=== PATIENT | male | born 1990 ===

== ENCOUNTER 2024-08-11 12:09 | Emergency (ER) | payer OTHER, SELFPAY ==
--- NOTE | ~2024-08-11 | XR_ITS ---
EXAMINATION: 1. Pelvis. 2. Sacrum. CLINICAL INFORMATION: Trauma. COMPARISON: None. TECHNIQUE: 1. Pelvis. Single view 2. Sacrum. AP lateral. FINDINGS: 1. Pelvis. No fracture of the pelvis. Hip joints and sacroiliac joints are normal. 2. Sacrum. No fracture sacrum or coccyx. XR/XR sacrum coccyx min 2V IMPRESSION: 1. Pelvis. No acute abnormality. 2. Sacrum. No acute abnormality. Electronically signed by: Cl Hernandez MD 08/11/2024 03:02 PM EDT
--- NOTE | ~2024-08-11 | XR_ITS ---
EXAMINATION: 1. Pelvis. 2. Sacrum. CLINICAL INFORMATION: Trauma. COMPARISON: None. TECHNIQUE: 1. Pelvis. Single view 2. Sacrum. AP lateral. FINDINGS: 1. Pelvis. No fracture of the pelvis. Hip joints and sacroiliac joints are normal. 2. Sacrum. No fracture sacrum or coccyx. XR/XR pelvis 1-2V IMPRESSION: 1. Pelvis. No acute abnormality. 2. Sacrum. No acute abnormality. Electronically signed by: Cl Hernandez MD 08/11/2024 03:02 PM EDT
[2024-08-11 12:49] VITALS: BP 115/64; PULSE 62; RESP 18; TEMP 36.6; O2SAT 99; BMI 28.0
--- NOTE | 2024-08-11 12:54 | ED_ITS ---
HPI - Fall General Chief Complaint: Fall Stated Complaint: Tailbone injury Time Seen by Provider: 08/11/24 13:18 Source: patient Limitations: no limitations History of Present Illness ED Provider: Jody Funes PA-C HPI Narrative: 34-year-old male presents with tailbone pain x2 days. Patient states he was playing basketball, he jumped up for the ball, he fell backwards landing on his bottom. Patient now having pain over the tailbone. Patient states it has been very painful to have a bowel movement, he is now constipated as he has been avoiding pushing to have a bowel movement. Denies abdominal pain, vomiting, inability to pass flatus. Denies weakness of lower extremities, paresthesia, urinary retention. Related Data Allergies Allergy/AdvReac Type Severity Reaction Status Date / Time No Known Allergies Allergy Verified 08/11/24 12:51 [No Known Allergies*] Review of Systems Review of Systems: Yes all other systems are reviewed and are negative Constitutional: Constitutional: Denies fatigue and Denies fever(s) Gastrointestinal: Gastrointestinal: Denies abdominal pain Musculoskeletal: Musculoskeletal: Reports back pain Endocrine: Endocrine: Denies fatigue [facility] Past Medical History Attestation statement: The following information was validated with the patient. Social History Social History Advance Directives: No Advance Directives Information Provided: No Physical Exam Vital Signs: Vital Signs: Last Vital Signs Temp 97.8 F 08/11/24 12:49 Pulse 62 08/11/24 12:49 Resp 18 08/11/24 12:49 BP 115/64 08/11/24 12:49 Pulse Ox 99 08/11/24 12:49 O2 Del Method Room Air 08/11/24 12:49 BMI result Body Mass Index 28.0 Const: Other: Alert, well in appearance Orientation/consciousness: patient oriented x3 Resp: Effort & Inspection: normal respiratory effort Back/Spine/Pelvis: Other: No midline tenderness over the length of the spine, no overlying erythema or ecchymosis over distal lumbar region, no deformity noted over the buttocks or rectum Skin: Other: Warm dry no rash Neuro: General: patient oriented x3, gait normal, no focal motor deficits and CN's II-XI intact bilaterally Extrem: Other: Strength 5/5 bilateral lower extremities, patient ambulates with a normal steady gait Psych: Other: Calm cooperative Course Course Course Narrative: This is a rapid medical exam performed by Jody Funes PA-C. The patient is a 34-year-old male who presents after a fall while playing basketball. Patient states he landed backwards landing on his bottom. Patient now having significant discomfort when he attempts to sit down. On exam, there is no palpable midline tenderness, there is no overlying erythema or ecchymosis over distal lumbar spine. Patient is ambulatory. We will order a pelvic and sacral x-ray and give ibuprofen and Tylenol. The patient will return to the weight room pending his full assessment. Medications Administered Discontinued Medications Generic Name Dose Route Start Last Admin Trade Name Shayq PRN Reason Stop Dose Admin Acetaminophen 975 mg 08/11/24 12:52 08/11/24 12:58 Acetaminophen 325 Mg Tablet PO 08/11/24 12:53 975 mg ONCE ONE Administration Ibuprofen 600 mg 08/11/24 12:52 08/11/24 12:58 Ibuprofen 600 Mg Tablet PO 08/11/24 12:53 600 mg ONCE ONE Administration Medical Decision Making Medical Decision Making MDM Narrative: 34-year-old male presents with tailbone pain x2 days. Patient states he was playing basketball, he jumped up for the ball, he fell backwards landing on his bottom. Patient now having pain over the tailbone. Patient states it has been very painful to have a bowel movement, he is now constipated as he has been avoiding pushing to have a bowel movement. Denies abdominal pain, vomiting, inability to pass flatus. Denies weakness of lower extremities, paresthesia, urinary retention. No chronic issues to address History: Per patient I have considered the following differential diagnoses: Fracture, dislocation, contusion, cauda equina Plan: X-ray of pelvis and sacrum obtained, no fractures. We will send with home care instructions. He has no red flag signs symptoms concerning for cord compression. Patient states since the fall, it is her to have a bowel movement, so Now he is constipated. We will send with a bowel regimen . He received Tylenol and ibuprofen while waiting for his imaging. I have independently reviewed the following tests: X-ray sacrum and pelvis:ECHNIQUE: 1. Pelvis. Single view 2. Sacrum. AP lateral. FINDINGS: 1. Pelvis. No fracture of the pelvis. Hip joints and sacroiliac joints are normal. 2. Sacrum. No fracture sacrum or coccyx. XR/XR pelvis 1-2V IMPRESSION: 1. Pelvis. No acute abnormality. 2. Sacrum. No acute abnormality. Electronically signed by: Cl Hernandez MD 08/11/2024 03:02 PM EDT RP Discharge Plan Discharge Clinical Impression: Tailbone injury, Constipation Patient Disposition: Home, Self-Care Instructions: Constipation (ED) Additional Instructions: X-rays of your pelvis and tailbone were negative for fracture. You sustained a bone bruise. You can apply ice to the area to help alleviate the discomfort, you can use [id number] Tylenol 1000 mg taken every 8 hours, alternated with the use of [id number] ibuprofen 600 mg taken every 6 hours with food, for your pain. In regard to these constipation, see home care instructions. You can purchase [id number] Colace, this is a stool softener, use this medication twice a day, this will help soften the stool to make bowel movements less painful. In addition, you should use [id number] MiraLax, mixed the powder per package instructions, you can drink this 1 to 2 times a day until your constipation is alleviated. Follow up with your primary care provider as needed. Print Language: Icelandic
[2024-08-11] MEDS: Acetaminophen 325 MG TABLET 975 MG PO (12:58)
[2024-08-11] MEDS: Ibuprofen 600 MG TABLET PO (12:58)
[2024-08-11 15:46] VITALS: BP 115/64; PULSE 62; RESP 18; TEMP 36.6; O2SAT 99
== END 2024-08-11 15:47 | disposition home or self-care (01) ==
PROVIDERS: Emergency Provider Emergency Medicine
DX: S39.92XA Unspecified injury of lower back, initial encounter (principal); R10.2 Pelvic and perineal pain; M53.3 Sacrococcygeal disorders, not elsewhere classified; K59.00 Constipation, unspecified; Y93.67 Activity, basketball; Y92.310 Basketball court as the place of occurrence of the external cause; Y99.8 Other external cause status
CPT/HCPCS: 72170; 72220; 99283